=== PATIENT | male | born 1955 | race Caucasian/White ===

== ENCOUNTER 2016-11-11 23:10 | Emergency (ER) | payer BC ==
[2016-11-11] MEDS: SODIUM CHLORIDE 0.9% FLUSH 10 ML SOL IV PRN ×2 (23:15→23:20)
[2016-11-11] MEDS ORDERED: DIAZEPAM 5MG/ML SOL IV ONE (23:20)
[2016-11-11] MEDS ORDERED: KETOROLAC TROMETHAMINE 30 MG/ML SOL IV ONE (23:20)
[2016-11-11] MEDS ORDERED: KETOROLAC TROMETHAMINE 30 MG/ML SOL ONE (23:26)
[2016-11-11] MEDS ORDERED: DIAZEPAM 5MG/ML SOL ONE (23:26)
[2016-11-11 23:50] VITALS: RESP 24; TEMP 96.6
[2016-11-12 00:45] VITALS: O2SAT 97
[2016-11-12 00:46] VITALS: BP 125/62; PULSE 61
[2016-11-12] MEDS ORDERED: SODIUM CHLORIDE 0.9% FLUSH 10 ML SOL IV PRN (23:15)
== END 2016-11-12 00:29 | disposition home or self-care (01) ==
LOC: ED 23:10
DX: M62.838 Other muscle spasm (principal)
CPT/HCPCS: 96374; 96375; 99282; 99285; J1885; J3360

== ENCOUNTER 2017-03-29 21:25 | Emergency (ER) | payer BC ==
[2017-03-29 21:35] VITALS: BP 135/84; PULSE 70; RESP 20; TEMP 99.1; O2SAT 99
[2017-03-29] MEDS ORDERED: ONDANSETRON HCL 4 MG/2 ML SOL IV ONE (21:38)
[2017-03-29] MEDS ORDERED: ONDANSETRON HCL 4 MG/2 ML SOL ONE (21:43)
[2017-03-29] MEDS ORDERED: SODIUM CHLORIDE 0.9% 1000ML 1,000 ML IV SCH (21:45)
[2017-03-29 22:14] LABS: BASOPHILS % (AUTO) 1 % (0-3); EOSINOPHILS % (AUTO) 2 % (0-9); HEMATOCRIT 38 % (39-53); MEAN CORPUSCULAR HGB CONC 36.8 gm/dl (32.0-36.0); MEAN CORPUSCULAR VOLUME 95 fL (80-100); MONOCYTES % (AUTO) 8.6 % (0-12); NEUTROPHILS % (AUTO) 69.5 % (37-80)
[2017-03-29 22:23] LABS: ALBUMIN 3.6 gm/dl (3.4-5.0); CALCIUM 9.8 mg/dl (8.5-10.1); POTASSIUM 3.9 mMol/L (3.5-5.1)
[2017-03-29 22:28] LABS: ANISOCYTOSIS MOD AMT
== END 2017-03-29 23:15 | disposition home or self-care (01) ==
LOC: ED 21:25
DX: R11.2 Nausea with vomiting, unspecified (principal); E86.0 Dehydration
CPT/HCPCS: 71020; 80053; 85025; 96365; 96374; 99282; 99283; J2405

== ENCOUNTER 2017-04-09 15:37 | Emergency (ER) | payer BC ==
[2017-04-09 14:50] LABS: BASOPHILS % (AUTO) 1 % (0-3); EOSINOPHILS % (AUTO) 3 % (0-9); HEMATOCRIT 37 % (39-53); MEAN CORPUSCULAR HGB CONC 35.7 gm/dl (32.0-36.0); MEAN CORPUSCULAR VOLUME 98 fL (80-100); MONOCYTES % (AUTO) 7.9 % (0-12); NEUTROPHILS % (AUTO) 74.9 % (37-80)
[2017-04-09 14:53] LABS: ALBUMIN 3.3 gm/dl (3.4-5.0); CALCIUM 9.3 mg/dl (8.5-10.1); POTASSIUM 3.4 mMol/L (3.5-5.1)
[2017-04-09 15:10] LABS: ANISOCYTOSIS SLIGHT AMT
[2017-04-09 15:54] VITALS: RESP 20; TEMP 98.5
[2017-04-09 16:30] VITALS: BP 121/77; PULSE 52; O2SAT 97
[2017-04-09] MEDS ORDERED: HEPARIN 500 Unit PRE-FILL 100 U/ML SOL IV ONE (17:33)
== END 2017-04-09 17:40 | disposition home or self-care (01) ==
LOC: ED 15:37
DX: K80.20 Calculus of gallbladder without cholecystitis without obstruction (principal); E87.6 Hypokalemia; E83.42 Hypomagnesemia; C15.9 Malignant neoplasm of esophagus, unspecified; C79.9 Secondary malignant neoplasm of unspecified site; C79.51 Secondary malignant neoplasm of bone; M62.838 Other muscle spasm; C79.89 Secondary malignant neoplasm of other specified sites
CPT/HCPCS: 99283 ×3; 71101; 74176; 80053; 85025; 96365; J1170; J1644; 36591

== ENCOUNTER 2017-04-26 15:53 | Observation (INO) | payer BC ==
[2017-04-26] MEDS ORDERED: ONDANSETRON HCL 4 MG/2 ML SOL IV PRN (16:05)
[2017-04-26] MEDS ORDERED: SODIUM CHLORIDE 0.9% 1000ML 1,000 ML IV SCH (16:15)
[2017-04-26 16:35] VITALS: RESP 16
[2017-04-26] MEDS ORDERED: APAP/HYDROCODONE 325/5 TAB PO PRN (16:36)
[2017-04-26] MEDS ORDERED: TEMAZEPAM 15MG 15 MG CAP PO PRN (17:30)
[2017-04-26] MEDS: DEXTROSE/SALINE 0.9% 1,000 ML IV SCH (18:11)
[2017-04-26] MEDS ORDERED: POTASSIUM CHLORIDE 10 MEQ TER PO SCH (21:00)
[2017-04-26] MEDS ORDERED: POTASSIUM CHLORIDE 20 MEQ PO SCH (21:00)
[2017-04-26] MEDS: APAP/HYDROCODONE 325/5 TAB PO PRN (21:25)
[2017-04-27] MEDS: APAP/HYDROCODONE 325/5 TAB PO PRN ×2 (04:11→09:06)
[2017-04-27] MEDS: DEXTROSE/SALINE 0.9% 1,000 ML IV SCH (04:12)
[2017-04-27 08:33] VITALS: BP 167/96; PULSE 96; TEMP 97; O2SAT 100
[2017-04-27] MEDS ORDERED: HEPARIN 500 Unit PRE-FILL 100 U/ML SOL IV PRN (08:36)
[2017-04-27] MEDS ORDERED: CHOLECALCIFEROL 1,000 IU TAB PO SCH (09:00)
[2017-04-27] MEDS ORDERED: CHOLECALCIFEROL 800 UNIT PO SCH (09:00)
[2017-04-27] MEDS ORDERED: ENOXAPARIN 40 MG SOL SC SCH (09:00)
== END 2017-04-27 10:00 | disposition home or self-care (01) ==
LOC: ACUTE CARE 15:53
PROVIDERS: ADMIT Emergency Medicine; ATTEND Emergency Medicine
DX: E86.0 Dehydration (principal); R11.2 Nausea with vomiting, unspecified
CPT/HCPCS: J1644; J1650; J2405

== ENCOUNTER 2017-05-21 07:49 | Emergency (ER) | payer BC ==
[2017-05-21 08:01] VITALS: TEMP 97.2
[2017-05-21] MEDS: SODIUM CHLORIDE 0.9% FLUSH 10 ML SOL IV PRN ×5 (08:20→09:42)
[2017-05-21 08:33] LABS: BASOPHILS % (AUTO) 0 % (0-3); EOSINOPHILS % (AUTO) 0 % (0-9); HEMATOCRIT 39 % (39-53); MEAN CORPUSCULAR HGB CONC 36.6 gm/dl (32.0-36.0); MEAN CORPUSCULAR VOLUME 92 fL (80-100); MONOCYTES % (AUTO) 5.1 % (0-12); NEUTROPHILS % (AUTO) 91.2 % (37-80)
[2017-05-21] MEDS ORDERED: SODIUM CHLORIDE 0.9% 1000ML 1,000 ML IV ONE ×2 (08:40→09:52)
[2017-05-21 08:49] LABS: ALBUMIN 3.1 gm/dl (3.4-5.0); CALCIUM 8.7 mg/dl (8.5-10.1); POTASSIUM 3.4 mMol/L (3.5-5.1)
[2017-05-21] MEDS ORDERED: EPINEPHRINE 1:1000 AMP 1 MG/ML SOL IV PRN ×3 (09:01→09:26)
[2017-05-21] MEDS: EPINEPHRINE HCL 0.1 MG/ML SOL IV PRN ×3 (09:01→09:42)
[2017-05-21] MEDS ORDERED: MIDAZOLAM 2 MG/2 ML SOL ONE (09:13)
[2017-05-21] MEDS ORDERED: KETAMINE HYDROCHLORIDE 50 MG/ML SOL ONE (09:17)
[2017-05-21] MEDS ORDERED: KETAMINE HYDROCHLORIDE 50 MG/ML SOL IV ONE ×2 (09:21→09:53)
[2017-05-21] MEDS ORDERED: MIDAZOLAM 2 MG/2 ML SOL IV ONE (09:26)
[2017-05-21] MEDS ORDERED: EPINEPHRINE 1:10,000 PREFILL 0.1 MG/ML SOL ONE ×2 (09:44→11:55)
[2017-05-21] MEDS ORDERED: SODIUM CHLORIDE 0.9% IR ONE ×2 (09:59→10:10)
[2017-05-21] MEDS ORDERED: TRANEXAMIC ACID IR ONE ×2 (09:59→10:10)
[2017-05-21] MEDS ORDERED: FENTANYL 100MCG/2ML SOL IV ONE (10:31)
[2017-05-21] MEDS ORDERED: FENTANYL 100MCG/2ML SOL ONE (10:33)
[2017-05-21 11:14] VITALS: RESP 28
[2017-05-21 11:20] VITALS: PULSE 84; O2SAT 68
[2017-05-21 11:21] VITALS: BP 68/45
== END 2017-05-21 10:57 | disposition expired ==
LOC: ED 07:49
DX: C15.9 Malignant neoplasm of esophagus, unspecified (principal)
CPT/HCPCS: 36415; 80053; 83735; 85025; 96365; 96366; 96374; 96375; 99291; 99292; J2250; J3010; J3490